=== PATIENT | female | born 1990 | race American Indian/Alaskan Native ===

== ENCOUNTER 2016-09-07 04:53 | Emergency (ER) | payer OTHER ==
[2016-09-07 05:23] VITALS: BP 134/97; PULSE 72; RESP 16; TEMP 98.1; O2SAT 100
--- NOTE | 2016-09-07 05:30 | ED PDOC ---
HPI: Abdomen Time Seen by Provider: 09/07/16 05:20 Chief Complaint (Nursing): Abdominal Pain Chief Complaint (Provider): Abdominal Pain History Per: Patient History/Exam Limitations: no limitations Onset/Duration Of Symptoms: Days (1) Current Symptoms Are (Timing): Still Present Location Of Pain/Discomfort: Suprapubic Quality Of Discomfort: Burning, "Pain" Associated Symptoms: Nausea. denies: Fever, Chills, Vomiting, Back Pain Additional Complaint(s): Nelda Mccann is a 25 y/o female presenting to the ER on 09/07/2016 with complaints of suprapubic abdominal pain onset yesterday. Pain , which radiates to her pelvis, is described as a "burning" sensation and associated with dizziness and nausea. Denies any back pain, hematuria fever, or chills. Patient reports having a UTI in the past. No vaginal complaints at this timor. Past Medical History Reviewed: Historical Data, Nursing Documentation, Vital Signs Vital Signs: Last Vital Signs Temp 98.1 F 09/07/16 05:18 Pulse 72 09/07/16 05:18 Resp 16 09/07/16 05:18 BP 134/97 H 09/07/16 05:18 Pulse Ox 100 09/07/16 05:50 - Medical History PMH: No Chronic Diseases Denies: Chronic Kidney Disease - Surgical History Surgical History: (1) - Family History Family History: States: Unknown Family Hx - Social History Current smoker - smoking cessation education provided: No Alcohol: None Drugs: Denies - Home Medications Home Medications: Ambulatory Orders Medication Instructions Recorded Nitrofurantoin Macrocrystals 100 mg PO BID #14 cap 09/02/15 [Macrobid] Multivit/Folic Acid/I 1 tab PO DAILY #30 tab 09/02/15 [ Plus] Naproxen 375 mg PO Q8 PRN #21 tab 12/21/15 Ibuprofen [Motrin] 600 mg PO Q6 PRN #15 tab 12/23/15 Metaxalone [Skelaxin] 800 mg PO TID PRN #15 tablet 12/23/15 DiphenhydrAMINE [Benadryl] 50 mg PO Q6 PRN #30 cap 04/13/16 Triamcinolone Acetonide 0.1% 1 appl TP BID #1 tube 04/13/16 [Kenalog 0.1% CREAM] Nitrofurantoin Macrocrystals 100 mg PO BID #14 cap 09/07/16 [Macrobid] - Allergies Allergies/Adverse Reactions: Allergies Allergy/AdvReac Type Severity Reaction Status Date / Time No Known Allergies Allergy Verified 04/26/15 12:32 Review of Systems ROS Statement: Except As Marked, All Systems Reviewed And Found Negative Constitutional: Negative for: Fever, Chills Gastrointestinal: Positive for: Nausea, Abdominal Pain. Negative for: Vomiting Genitourinary Female: Positive for: Pelvic Pain. Negative for: Hematuria Musculoskeletal: Negative for: Back Pain Neurological: Positive for: Dizziness Physical Exam - Reviewed Nursing Documentation Reviewed: Yes Vital Signs Reviewed: Yes - Physical Exam Appears: Positive for: Non-toxic, No Acute Distress Head Exam: Positive for: ATRAUMATIC, NORMOCEPHALIC Skin: Positive for: Normal Color, Warm, Dry Eye Exam: Positive for: Normal appearance, EOMI, PERRL Neck: Positive for: Normal, Painless ROM, Supple Cardiovascular/Chest: Positive for: Regular Rate, Rhythm. Negative for: Murmur Respiratory: Positive for: Normal Breath Sounds. Negative for: Wheezing, Respiratory Distress Gastrointestinal/Abdominal: Positive for: Tenderness ((+) mild suprapubic) Extremity: Positive for: Normal ROM. Negative for: Deformity, Swelling Neurologic/Psych: Positive for: Alert, Oriented. Negative for: Motor/Sensory Deficits - ECG O2 Sat by Pulse Oximetry: 100 Medical Decision Making Medical Decision Makin:20 Initial Impression- UTI Initial Plan- * Pyridium 100 mg PO Documented by Talia Mora, acting as a scribe for Jameson Nunez MD. All medical record entries made by the Scribe were at my direction and personally dictated by me. I have reviewed the chart and agree that the record accurately reflects my personal performance of the history, physical exam, medical decision making, and the department course for this patient. I have also personally directed, reviewed, and agree with the discharge instructions and disposition. Disposition - Clinical Impression Clinical Impression: UTI (urinary tract infection) - Disposition Referrals: [facility] [Outside] Disposition Time: 05:40 Condition: GOOD Additional Instructions: Follow up with your PCP in 2-3 days. Prescriptions: Nitrofurantoin Macrocrystals [Macrobid] 100 mg PO BID #14 cap Instructions: Urinary Tract Infection in Women (ED)
== END 2016-09-07 06:01 | disposition home or self-care (01) ==
LOC: H.ER 04:53
DX: N39.0 Urinary tract infection, site not specified (principal)

== ENCOUNTER 2016-09-17 10:53 | Observation (INO) | payer OTHER ==
[2016-09-17 10:58] VITALS: BP 114/71; PULSE 84; TEMP 98.4; O2SAT 99; BMI 27.1
[2016-09-17 11:12] VITALS: RESP 16
[2016-09-17] MEDS ORDERED: Sodium Chloride 0.9% 1,000 ML IV STA (11:24)
--- NOTE | 2016-09-17 11:29 | ED PDOC ---
HPI: Abdomen Time Seen by Provider: 09/17/16 11:10 Chief Complaint (Nursing): GI Problem Chief Complaint (Provider): Abd pain History Per: Patient History/Exam Limitations: no limitations Onset/Duration Of Symptoms: Days (Today) Outside of [place] travel?: No Additional Complaint(s): Pt. with nasuea, vomit multiple episodes when she woke up. Also with some blood tinge in a few vomit episodes. For 2 weeks has lower abd pain. Dysuria, increased freq of urination, urgency of urination No new food/drinks. No travel. No back pain, chest pain, fever. Not preg per pt. No diarrhea. No vaginal bleeding. Past Medical History Reviewed: Nursing Documentation, Vital Signs Vital Signs: Last Vital Signs Temp 98.4 F 09/17/16 11:08 Pulse 84 09/17/16 11:08 Resp 16 09/17/16 11:08 BP 114/71 09/17/16 11:08 Pulse Ox 99 09/17/16 11:41 - Medical History PMH: No Chronic Diseases Denies: Chronic Kidney Disease - Surgical History Surgical History: (1) - Family History Family History: States: Unknown Family Hx - Social History Current smoker - smoking cessation education provided: No Alcohol: None Drugs: Denies - Home Medications Home Medications: Ambulatory Orders Medication Instructions Recorded Nitrofurantoin Macrocrystals 100 mg PO BID #14 cap 09/02/15 [Macrobid] Multivit/Folic Acid/I 1 tab PO DAILY #30 tab 09/02/15 [ Plus] Naproxen 375 mg PO Q8 PRN #21 tab 12/21/15 Ibuprofen [Motrin] 600 mg PO Q6 PRN #15 tab 12/23/15 Metaxalone [Skelaxin] 800 mg PO TID PRN #15 tablet 12/23/15 DiphenhydrAMINE [Benadryl] 50 mg PO Q6 PRN #30 cap 04/13/16 Triamcinolone Acetonide 0.1% 1 appl TP BID #1 tube 04/13/16 [Kenalog 0.1% CREAM] Nitrofurantoin Macrocrystals 100 mg PO BID #14 cap 09/07/16 [Macrobid] - Allergies Allergies/Adverse Reactions: Allergies Allergy/AdvReac Type Severity Reaction Status Date / Time No Known Allergies Allergy Verified 04/26/15 12:32 Review of Systems ROS Statement: Except As Marked, All Systems Reviewed And Found Negative Gastrointestinal: Positive for: Nausea, Vomiting, Abdominal Pain, Hematemesis Physical Exam - Reviewed Nursing Documentation Reviewed: Yes Vital Signs Reviewed: Yes - Physical Exam Appears: Positive for: Non-toxic, No Acute Distress Head Exam: Positive for: ATRAUMATIC, NORMAL INSPECTION, NORMOCEPHALIC Skin: Positive for: Normal Color, Warm, DRY Eye Exam: Positive for: EOMI, Normal appearance, PERRL ENT: Positive for: Normal ENT Inspection Neck: Positive for: Normal, Painless ROM Cardiovascular/Chest: Positive for: Regular Rate, Rhythm Respiratory: Positive for: CNT, Normal Breath Sounds Gastrointestinal/Abdominal: Positive for: Bowel Sounds, Soft, Tenderness (mild across lower) Back: Positive for: Normal Inspection. Negative for: L CVA Tenderness, R CVA Tenderness Extremity: Positive for: Normal ROM. Negative for: Tenderness, Pedal Edema Neurologic/Psych: Positive for: Alert, Oriented - Laboratory Results Result Diagrams: 09/17/16 11:41 09/17/16 11:41 Urine POC: Negative Urine dip results: Positive for: Leukocyte Esterase - ECG O2 Sat by Pulse Oximetry: 99 Pulse Ox Interpretation: Normal - Progress ED Course And Treament: 1310: Stable. AAOx3. Refuses to stay for further evaluation and treatment. Pt. has capacity to make decisions. Aware of possible or decreased functioning from causes of her symptoms. Is pain free and walking around. ED OBSERVATION Discharge: Yes Date of observation admission: 09/17/16 Time of observation admission: 11:40 - Observation admission statement Patient is being placed in observation because:: abd pain - Goals of Observation Goals of observation are:: eval pain - Progress Note Progress Note: 09/17/16 13:13 ama Disposition - Clinical Impression Clinical Impression: Abdominal pain, Hematemesis with nausea Counseled Patient/Family Regarding: Studies Performed - Disposition Disposition: Against Medical Advice Disposition Time: 13:14 Condition: STABLE
[2016-09-17] MEDS ORDERED: Iohexol 240 (50 ml) PO ONE (11:39)
[2016-09-17 11:50] LABS: BASO % 1.2 % (0.0-2.0); HEMATOCRIT 37.8 % (34.0-47.0); LYMPH # 0.9 K/uL (1.0-4.3); MEAN CELL VOLUME 85.5 fl (81.0-99.0); MEAN CORPUSCULAR HEMOGLOBIN 28.1 pg (27.0-31.0); MEAN CORPUSCULAR HGB CONC 32.9 g/dL (33.0-37.0); MEAN PLATELET VOLUME 10.5 fl (7.2-11.7); MONO # 0.4 K/uL (0.0-0.8); MONO % 9.3 % (0.0-10.0); NEUT # 2.5 K/uL (1.8-7.0); NEUT % 65.5 % (50.0-75.0); RED CELL DISTRIBUTION WIDTH 13.5 % (11.5-14.5); WHITE BLOOD COUNT 3.9 K/uL (4.8-10.8)
[2016-09-17 11:58] LABS: ALB/GLOB RATIO 1.1 (1.0-2.1); ALKALINE PHOSPHATASE 56 U/L (38-126); ALT/SGPT 25 U/L (9-52); AST/SGOT 35 U/L (14-36); BILIRUBIN,TOTAL 0.3 mg/dl (0.2-1.3); BLOOD UREA NITROGEN 11 mg/dl (7-17); CARBON DIOXIDE 24 mmol/L (22-30); CHLORIDE 105 mmol/L (98-107); GFR AFRICAN-AMERICAN > 60; GLUCOSE,RANDOM 116 mg/dL (65-105); LIPASE 48 U/L (23-300); POTASSIUM 4.1 MMOL/L (3.6-5.0); SODIUM 142 mmol/l (132-148); TOTAL PROTEIN 8.2 G/DL (6.3-8.2)
== END 2016-09-17 13:15 | disposition left against medical advice (07) ==
LOC: H.ER 10:53 → H.EROBSV 11:39
PROVIDERS: ADMIT Emergency Medicine; ATTEND Emergency Medicine
DX: R10.30 Lower abdominal pain, unspecified (principal); K92.0 Hematemesis; R11.2 Nausea with vomiting, unspecified

== ENCOUNTER 2017-03-07 00:50 | Emergency (ER) | payer OTHER ==
[2017-03-07 00:50] VITALS: BMI 27.1
[2017-03-07 00:57] VITALS: BP 142/84; PULSE 98; RESP 16; TEMP 98.2; O2SAT 98
--- NOTE | 2017-03-07 01:33 | ED PDOC ---
HPI: Abdomen Time Seen by Provider: 03/07/17 00:57 Chief Complaint (Nursing): Abdominal Pain Chief Complaint (Provider): lower abdominal pain History Per: Patient History/Exam Limitations: no limitations Onset/Duration Of Symptoms: Hrs (1) Outside of [place] travel?: No Current Symptoms Are (Timing): Still Present Severity: Moderate Location Of Pain/Discomfort: Suprapubic Quality Of Discomfort: Burning Associated Symptoms: Nausea, Constipation, Urinary Symptoms. denies: Fever, Chills, Vomiting, Diarrhea Exacerbating Factors: None Alleviating Factors: None Last Bowel Movement: Days Ago (7) Additional Complaint(s): 26 year old female with history of constipation presents to ED with suprapubic abdominal pain x [address] [employer]. Patient states pain is constant and burning sensation and dysuria as well. Denies hematuria, fever, chills, back pain. Nausea present at times, though not at this time. Patient states last menstrual period 12/19/16 due to termination of in january. Patient states last BM 1 week ago, she admits to history of constipation with 4-8 days without BM. Patient states no meds at this time for constipation. Abnormal Vaginal Bleeding: No Last Menstral Period: 12/19/16 Past Medical History Reviewed: Historical Data, Nursing Documentation, Vital Signs Vital Signs: Last Vital Signs Temp 98.2 F 03/07/17 00:54 Pulse 98 H 03/07/17 00:54 Resp 16 03/07/17 00:54 BP 142/84 03/07/17 00:54 Pulse Ox 98 03/07/17 02:18 - Medical History PMH: Denies: Chronic Kidney Disease - Surgical History Surgical History: (1) - Family History Family History: States: Unknown Family Hx - Social History Current smoker - smoking cessation education provided: No Alcohol: Occasional Drugs: Denies - Home Medications Home Medications: Ambulatory Orders Medication Instructions Recorded Nitrofurantoin Macrocrystals 100 mg PO BID #14 cap 09/02/15 [Macrobid] Multivit/Folic Acid/I 1 tab PO DAILY #30 tab 09/02/15 [ Plus] Naproxen 375 mg PO Q8 PRN #21 tab 12/21/15 Ibuprofen [Motrin] 600 mg PO Q6 PRN #15 tab 12/23/15 Metaxalone [Skelaxin] 800 mg PO TID PRN #15 tablet 12/23/15 DiphenhydrAMINE [Benadryl] 50 mg PO Q6 PRN #30 cap 04/13/16 Triamcinolone Acetonide 0.1% 1 appl TP BID #1 tube 04/13/16 [Kenalog 0.1% CREAM] Nitrofurantoin Macrocrystals 100 mg PO BID #14 cap 09/07/16 [Macrobid] Nitrofurantoin Macrocrystals 100 mg PO BID #14 cap 03/07/17 [Macrobid] Phenazopyridine HCl [Pyridium] 100 mg PO TID #6 tab 03/07/17 Polyethylene Glycol 3350 [Miralax] 17 g PO QAM PRN #7 pkg 03/07/17 - Allergies Allergies/Adverse Reactions: Allergies Allergy/AdvReac Type Severity Reaction Status Date / Time No Known Allergies Allergy Verified 04/26/15 12:32 Review of Systems ROS Statement: Except As Marked, All Systems Reviewed And Found Negative Constitutional: Negative for: Fever, Chills Gastrointestinal: Positive for: Nausea, Abdominal Pain, Constipation. Negative for: Vomiting Genitourinary Female: Positive for: Dysuria Physical Exam - Reviewed Nursing Documentation Reviewed: Yes Vital Signs Reviewed: Yes - Physical Exam Appears: Positive for: Well, Non-toxic, No Acute Distress Head Exam: Positive for: ATRAUMATIC, NORMAL INSPECTION, NORMOCEPHALIC Skin: Positive for: Normal Color, Warm, DRY Eye Exam: Positive for: Normal appearance, EOMI Neck: Positive for: Normal, Painless ROM Cardiovascular/Chest: Positive for: Regular Rate, Rhythm Respiratory: Positive for: Normal Breath Sounds. Negative for: Crackles, Rales , Wheezing Gastrointestinal/Abdominal: Positive for: Bowel Sounds (normal), Tenderness ( mild tenderness of suprapubic area), Distended (mildly) Back: Positive for: Normal Inspection. Negative for: L CVA Tenderness, R CVA Tenderness Extremity: Positive for: Normal ROM. Negative for: Tenderness, Pedal Edema Neurologic/Psych: Positive for: Alert, Oriented - ECG O2 Sat by Pulse Oximetry: 98 Pulse Ox Interpretation: Normal - Progress ED Course And Treament: Time: 0125 Impression: 26 year old female presents with lower abdominal pain x [address] [employer], constant, burning, suprapubic pain. 1 week no BM. Plan: -URINE DIP STICK -URINE -URINALYSIS -URINE CULTURE -ABDOMEN FLAT PLATE -REEVAL Time: 0200 Urine indicative of UTI. Xray reviewed shows constipation. Patient had BM during ED stay. Patient to be discharge home with PO abx and treatment for constipation. Patient to follow up with PMD in 2-3 days. Disposition - Clinical Impression Clinical Impression: UTI (urinary tract infection), Constipation Counseled Patient/Family Regarding: Studies Performed, Diagnosis, Need For Followup - Disposition Referrals: [facility] [Outside] Disposition: Routine/Home Disposition Time: 02:21 Condition: STABLE Additional Instructions: Follow up with your PCP in 2-3 days. Take medications as prescribed. Return to ED for new/worsening symptoms. Prescriptions: Nitrofurantoin Macrocrystals [Macrobid] 100 mg PO BID #14 cap Phenazopyridine HCl [Pyridium] 100 mg PO TID #6 tab Polyethylene Glycol 3350 [Miralax] 17 g PO QAM PRN #7 pkg PRN Reason: Constipation Instructions: Constipation (ED), Urinary Tract Infection in Women (ED) Forms: [facility] (Kyrgyz)
[2017-03-07 02:55] LABS: URINE BILIRUBIN NEGATIVE (NEGATIVE); URINE BLOOD SMALL (NEGATIVE); URINE COLOR YELLOW (YELLOW); URINE GLUCOSE (UA) NEG (Normal); URINE KETONE NEGATIVE (NEGATIVE); URINE LEUKOCYTE ESTERASE LARGE Leu/uL (Negative); URINE PROTEIN 100 mg/dL (NEGATIVE); URINE UROBILINOGEN 0.2-1.0 mg/dL (0.2-1.0)
--- NOTE | 2017-03-07 08:38 | RAD ---
HISTORY: abd pain COMPARISON: No prior. FINDINGS: BOWEL: There is a mildly prominent amount retained fecal material scattered throughout the colon which may indicate constipation. Clinically correlate. No gross free intraperitoneal gas pattern or definite obstructive bowel gas pattern BONES: Normal. OTHER FINDINGS: Tiny phleboliths or limited other calcifications seen infrequently at the bilateral inferior pelvis soft tissues. IMPRESSION: Nonobstructive bowel gas pattern. No free intraperitoneal gas grossly evident however constipation pattern may be present. Clinically correlate.
== END 2017-03-07 02:10 | disposition home or self-care (01) ==
LOC: H.ER 00:50
DX: N39.0 Urinary tract infection, site not specified (principal); K59.00 Constipation, unspecified

== ENCOUNTER 2017-08-15 07:57 | Emergency (ER) | payer OTHER ==
[2017-08-15 08:02] VITALS: BMI 27.4
--- NOTE | 2017-08-15 09:14 | ED PDOC ---
History of Present Illness History of Present Illness: 26 y/o female presents to the ED complaining of fever, body aches, whole body pain x 2days. Reports that she vomited at home. Also reports taking Theraflu and Nyquil without relief. Denies diarrhea, sore throat or any further medical complaints. <MarleniLisa Y - Last Filed: 08/15/17 11:08> HPI: Influenza Chief Complaint (Provider): Flu-like Symptoms History Per: Patient Exam Limitations: no limitations <Lisa eYpez Y - Last Filed: 08/15/17 11:08> <Martin Gómez E - Last Filed: 08/16/17 10:20> Time Seen by Provider: 08/15/17 08:33 Chief Complaint: Flu-like Symptoms Past Medical History Reviewed: Historical Data, Nursing Documentation, Vital Signs Vital Signs: Last Vital Signs Temp 102.7 F H 08/15/17 08:02 Pulse 132 H 08/15/17 08:02 Resp 17 08/15/17 08:02 BP 116/71 08/15/17 08:02 Pulse Ox 97 08/15/17 08:02 - Medical History PMH: No Chronic Diseases Denies: Chronic Kidney Disease - Surgical History Surgical History: (1) - Family History Family History: States: Unknown Family Hx - Social History Current smoker - smoking cessation education provided: No Alcohol: Occasional Drugs: Denies <MarleniLisa Y - Last Filed: 08/15/17 11:08> Vital Signs: Last Vital Signs Temp 99.8 F H 08/15/17 11:38 Pulse 76 08/15/17 11:38 Resp 18 08/15/17 11:38 BP 122/67 08/15/17 11:38 Pulse Ox 100 08/15/17 11:38 <Martin Gómez E - Last Filed: 08/16/17 10:20> - Home Medications Home Medications: Ambulatory Orders Medication Instructions Recorded Nitrofurantoin Macrocrystals 100 mg PO BID #14 cap 09/02/15 [Macrobid] Multivit/Folic Acid/I 1 tab PO DAILY #30 tab 09/02/15 [ Plus] Naproxen 375 mg PO Q8 PRN #21 tab 12/21/15 Ibuprofen [Motrin] 600 mg PO Q6 PRN #15 tab 12/23/15 Metaxalone [Skelaxin] 800 mg PO TID PRN #15 tablet 12/23/15 DiphenhydrAMINE [Benadryl] 50 mg PO Q6 PRN #30 cap 04/13/16 Triamcinolone Acetonide 0.1% 1 appl TP BID #1 tube 04/13/16 [Kenalog 0.1% CREAM] Nitrofurantoin Macrocrystals 100 mg PO BID #14 cap 09/07/16 [Macrobid] Nitrofurantoin Macrocrystals 100 mg PO BID #14 cap 03/07/17 [Macrobid] Phenazopyridine HCl [Pyridium] 100 mg PO TID #6 tab 03/07/17 Polyethylene Glycol 3350 [Miralax] 17 g PO QAM PRN #7 pkg 03/07/17 Oseltamivir [Tamiflu] 75 mg PO BID #10 cap 08/15/17 - Allergies Allergies/Adverse Reactions: Allergies Allergy/AdvReac Type Severity Reaction Status Date / Time No Known Allergies Allergy Verified 04/26/15 12:32 Review of Systems ROS Statement: Except As Marked, All Systems Reviewed And Found Negative (As pe rHPI, otherwise negative) Constitutional: Positive for: Fever, Other Gastrointestinal: Positive for: Vomiting <Lisa Yepez Y - Last Filed: 08/15/17 11:08> Physical Exam - Reviewed Nursing Documentation Reviewed: Yes Vital Signs Reviewed: Yes - Physical Exam Appears: Positive for: Non-toxic, No Acute Distress Head Exam: Positive for: ATRAUMATIC, NORMAL INSPECTION, NORMOCEPHALIC Skin: Positive for: Normal Color, Warm, Dry Eye Exam: Positive for: EOMI, Normal appearance, PERRL ENT: Positive for: Normal ENT Inspection Neck: Positive for: Normal, Painless ROM, Supple Cardiovascular/Chest: Positive for: Regular Rate, Rhythm. Negative for: Murmur Respiratory: Positive for: Normal Breath Sounds. Negative for: Accessory Muscle Use, Respiratory Distress Gastrointestinal/Abdominal: Positive for: Normal Exam, Bowel Sounds, Soft. Negative for: Tenderness Back: Positive for: Normal Inspection Extremity: Positive for: Normal ROM. Negative for: Deformity Neurologic/Psych: Positive for: Alert, Oriented (x3) <Lisa Yepez Y - Last Filed: 03/26/18 11:08> Medical Decision Making Medical Decision Making: Time: 08:56 Initial Impression: Flu-like symtoms Plan: Acetaminophen 650mg PO Reevalaution Time: 09:36 Throat culture Time: 11:08 -- Labs reviewed and patient was found flu positive --upon reevaluation, fever came down --Patient will be discharged home Scribe Attestation: Documented by Deric Balderas acting as a scribe for Lisa Yepez MD. Scribe Attestation: All medical record entries made by the Scribe were at my direction and personally dictated by me. I have reviewed the chart and agree that the record accurately reflects my personal performance of the history, physical exam, medical decision making, and the department course for this patient. I have also personally directed, reviewed, and agree with the discharge instructions and disposition. <Lisa Yepez Y - Last Filed: 08/15/17 11:08> - ECG O2 Sat by Pulse Oximetry: 97 <Lisa Yepez Y - Last Filed: 08/15/17 11:08> Disposition - Disposition Disposition: Routine/Home Disposition Time: 11:08 <Lisa Yepez Y - Last Filed: 08/15/17 11:08> <Martin Gómez E - Last Filed: 08/16/17 10:20> - Clinical Impression Clinical Impression: Influenza - Disposition Condition: IMPROVED Additional Instructions: FOLLOW UP WITH YOUR PRIMARY DOCTOR IN 1-2 DAYS RETURN TO THE ED WITH ANY WORSENING OR CONCERNING SYMPTOMS Prescriptions: Oseltamivir [Tamiflu] 75 mg PO BID #10 cap Instructions: Flu, Adult (DC) Forms: [facility] ED School/Work Excuse Addendum Addendum: 08/16/17 10:19 Throat culture: +group a strep Spoke with patient and informed of results. States she is currently taking Tamiflu and has had some improvement but symptoms are still present. Called Amoxicillin Rx into [facility] [phone]. Advised to also continue Tamiflu and to return to ED if symptoms worsen or do not improve. <Martin Gómez E - Last Filed: 08/16/17 10:20>
[2017-08-15 11:40] VITALS: BP 122/67; PULSE 76; RESP 18; TEMP 99.8; O2SAT 100
== END 2017-08-15 11:42 | disposition home or self-care (01) ==
LOC: H.ER 07:57
DX: J11.1 Influenza due to unidentified influenza virus with other respiratory manifestations (principal)

== ENCOUNTER 2017-09-14 13:54 | Emergency (ER) | payer OTHER ==
[2017-09-14 13:54] VITALS: BMI 27.4
[2017-09-14 14:14] VITALS: O2SAT 99
--- NOTE | 2017-09-14 16:06 | ED PDOC ---
HPI: Female Pain Time Seen by Provider: 09/14/17 14:05 Chief Complaint (Nursing): Female Genitourinary Chief Complaint (Provider): Vaginal Spotting History Per: Patient History/Exam Limitations: no limitations Onset/Duration Of Symptoms: Days (Yesterday) Current Symptoms Are (Timing): Still Present Quality Of Discomfort: Cramping (Right pelvic, resolved) Additional Complaint(s): Nelda Mccann is a 26 year old female, with a surgical history of a c section, complaining of vaginal spotting onset since yesterday. Patient describes spotting as light pink in color and reports right pelvic cramping but currently resolved. 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 Patient had a positive home test. She is A0 and denies other medical complaints. She reports no drug allergies. PCP: not provided Past Medical History Reviewed: Historical Data, Nursing Documentation, Vital Signs Vital Signs: Last Vital Signs Temp 98.3 F 09/14/17 14:07 Pulse 94 H 09/14/17 14:07 Resp 20 09/14/17 14:07 BP 125/79 09/14/17 14:07 Pulse Ox 99 09/14/17 14:07 - Medical History PMH: No Chronic Diseases Denies: Chronic Kidney Disease - Surgical History Surgical History: (1) - Family History Family History: States: Unknown Family Hx - Social History Current smoker - smoking cessation education provided: No Drugs: Denies - Home Medications Home Medications: Ambulatory Orders Medication Instructions Recorded Nitrofurantoin Macrocrystals 100 mg PO BID #14 cap 09/02/15 [Macrobid] Multivit/Folic Acid/I 1 tab PO DAILY #30 tab 09/02/15 [ Plus] Naproxen 375 mg PO Q8 PRN #21 tab 12/21/15 Ibuprofen [Motrin] 600 mg PO Q6 PRN #15 tab 12/23/15 Metaxalone [Skelaxin] 800 mg PO TID PRN #15 tablet 12/23/15 DiphenhydrAMINE [Benadryl] 50 mg PO Q6 PRN #30 cap 04/13/16 Triamcinolone Acetonide 0.1% 1 appl TP BID #1 tube 04/13/16 [Kenalog 0.1% CREAM] Nitrofurantoin Macrocrystals 100 mg PO BID #14 cap 09/07/16 [Macrobid] Nitrofurantoin Macrocrystals 100 mg PO BID #14 cap 03/07/17 [Macrobid] Phenazopyridine HCl [Pyridium] 100 mg PO TID #6 tab 03/07/17 Polyethylene Glycol 3350 [Miralax] 17 g PO QAM PRN #7 pkg 03/07/17 Oseltamivir [Tamiflu] 75 mg PO BID #10 cap 08/15/17 Nitrofurantoin Macrocrystals 100 mg PO BID #14 cap 09/14/17 [Macrobid] - Allergies Allergies/Adverse Reactions: Allergies Allergy/AdvReac Type Severity Reaction Status Date / Time No Known Allergies Allergy Verified 04/26/15 12:32 Review of Systems ROS Statement: Except As Marked, All Systems Reviewed And Found Negative Genitourinary Female: Positive for: Vaginal Bleeding (Vaginal spotting). Negative for: Pelvic Pain (Resolved) Physical Exam - Reviewed Nursing Documentation Reviewed: Yes Vital Signs Reviewed: Yes - Physical Exam Appears: Positive for: Non-toxic, No Acute Distress Skin: Positive for: Normal Color, Warm, Dry Eye Exam: Positive for: Normal appearance Neck: Positive for: Painless ROM Cardiovascular/Chest: Positive for: Regular Rate, Rhythm. Negative for: Murmur Respiratory: Positive for: Normal Breath Sounds. Negative for: Respiratory Distress Gastrointestinal/Abdominal: Positive for: Tenderness (Slight suprapubic tenderness) Back: Positive for: Normal Inspection. Negative for: L CVA Tenderness, R CVA Tenderness, Vertebral Tenderness Extremity: Positive for: Normal ROM. Negative for: Deformity, Swelling Neurologic/Psych: Positive for: Alert, Oriented - Laboratory Results Result Diagrams: 09/14/17 16:00 09/14/17 16:00 - ECG O2 Sat by Pulse Oximetry: 99 (RA) Pulse Ox Interpretation: Normal Medical Decision Making Medical Decision Making: Initial Impression: Vaginal Spotting rule out threatened Initial Plan: * ABO/RH Type Stat * Beta HCG Quantitative Stat * CMP * CBC * Urine Culture * Urinalysis * OB US * Re Evaluation Time: 1747 Patient is stable for discharge. Time: 1829 Pending HCG and ultrasound Ultrasound FINDINGS: There is an intrauterine gestational sac with a pole and yolk sac.. Yolk sac measures 3.5 mm. heart rate is 142 bpm A pole is seen measuring 8.2 mm 6 weeks 5 days Ultrasound GA 7 weeks RAMÍREZ 05/03/2018 Clinical GA 7 weeks 1 day RAMÍREZ 05/02/2018. The uterus measures 8.2 cm x 7.1 cm x 6.4 cm. cervix measures 4.2 cm the os is closed. The ovaries do not show focal abnormality. Normal blood flow is seen in both ovaries. The RIGHT ovary 2.6 cm x 1.5 cm x 2.5 cm The LEFT ovary 2.2 cm x 1.3 cm x 2.1 cm. IMPRESSION: 1. Single living intrauterine 2. Gestational age 7 weeks one day RAMÍREZ 05/02/2018 3. [place] examination of the ovaries 4. Negative uterus and cervix pt has uti. pt awaiting results of US. signout to Dr Winston Matias Attestation: Documented by Felix Lewis acting as a scribe for Lisa Yepez MD. MD Amat[place]juen Attestation: All medical record entries made by the Scribe were at my direction and personally dictated by me. I have reviewed the chart and agree that the record accurately reflects my personal performance of the history, physical exam, medical decision making, and the department course for this patient. I have also personally directed, reviewed, and agree with the discharge instructions and disposition. Disposition - Clinical Impression Clinical Impression: Threatened , UTI (urinary tract infection) - Patient ED Disposition Is Patient to be Admitted: Transfer of Care Counseled Patient/Family Regarding: Studies Performed, Diagnosis, Need For Followup - Disposition [facility]errals: [facility] [Outside] Disposition: Transfer of Care Disposition Time: 19:00 Condition: STABLE Prescriptions: Nitrofurantoin Macrocrystals [Macrobid] 100 mg PO BID #14 cap Instructions: Urinary Tract Infections in Adults, Threatened Miscarriage (DC), Bleeding With (DC) Forms: [employer] (Albanian), [facility] ED School/Work Excuse
[2017-09-14 16:27] LABS: BASO % 0.6 % (0.0-2.0); EOS # 0.1 K/uL (0.0-0.7); EOS % 2.1 % (0.0-4.0); LYMPH # 1.6 K/uL (1.0-4.3); MEAN CELL VOLUME 85.4 fl (81.0-99.0); MEAN CORPUSCULAR HEMOGLOBIN 28.2 pg (27.0-31.0); MEAN PLATELET VOLUME 10.4 fl (7.2-11.7); MONO # 0.6 K/uL (0.0-0.8); MONO % 9.9 % (0.0-10.0); NEUT # 3.3 K/uL (1.8-7.0); NEUT % 59.4 % (50.0-75.0); NRBC % 0.1 % (0.0-0.0); RBC 4.25 Mil/uL (3.80-5.20); RED CELL DISTRIBUTION WIDTH 12.8 % (11.5-14.5); WHITE BLOOD COUNT 5.6 K/uL (4.8-10.8)
[2017-09-14 16:38] LABS: ALB/GLOB RATIO 1.2 (1.0-2.1); ALBUMIN 4.2 g/dL (3.5-5.0); ALT/SGPT 28 U/L (9-52); AST/SGOT 21 U/L (14-36); BLOOD UREA NITROGEN 10 mg/dl (7-17); CALCIUM 9.3 mg/dL (8.4-10.2); GFR AFRICAN-AMERICAN > 60; GFR NON-AFRICAN AMERICAN > 60
[2017-09-14 17:06] LABS: SQUAMOUS EPITHIAL 9 /hpf (0-5); URINE BACTERIA RARE (<OCC); URINE BILIRUBIN NEGATIVE (NEGATIVE); URINE BLOOD NEGATIVE (NEGATIVE); URINE CLARITY CLOUDY (Clear); URINE COLOR YELLOW (YELLOW); URINE GLUCOSE (UA) NEG (Normal); URINE LEUKOCYTE ESTERASE SMALL Leu/uL (Negative); URINE PROTEIN NEGATIVE (NEGATIVE); URINE UROBILINOGEN 0.2-1.0 mg/dL (0.2-1.0)
--- NOTE | 2017-09-14 20:47 | ED PDOC ---
- Laboratory Results Result Diagrams: 09/14/17 16:00 09/14/17 16:00 - ECG O2 Sat by Pulse Oximetry: 99 (RA) Pulse Ox Interpretation: Normal Medical Decision Making Medical Decision MakinPM: Patient endorsed to me by Dr. Yepez pending U/S and Beta-HCG 830PM: EXAM: US Uterus, Limited CLINICAL HISTORY: 26 years old, female; Signs and symptoms; Lmp or gestational age (in weeks): 07/26; Other: Spotting; ; Additional info: vag spotting TECHNIQUE: Real-time ultrasound of the maternal uterus (limited) with image documentation. COMPARISON: US - OB TRANSVAGINAL 2015-04-26 14:11 FINDINGS: There is an intrauterine gestational sac with a pole and yolk sac.. Yolk sac measures 3.5 mm. heart rate is 142 bpm A pole is seen measuring 8.2 mm 6 weeks 5 days Ultrasound GA 7 weeks RAMÍREZ 05/03/2018 Clinical GA 7 weeks 1 day RAMÍREZ 05/02/2018. The uterus measures 8.2 cm x 7.1 cm x 6.4 cm. cervix measures 4.2 cm the os is closed. The ovaries do not show focal abnormality. Normal blood flow is seen in both ovaries. The RIGHT ovary 2.6 cm x 1.5 cm x 2.5 cm The LEFT ovary 2.2 cm x 1.3 cm x 2.1 cm. IMPRESSION: 1. Single living intrauterine 2. Gestational age 7 weeks one day RAMÍREZ 05/02/2018 3. [place] examination of the ovaries 4. Negative uterus and cervix Thank you for allowing us to participate in the care of your patient. Dictated and Authenticated by: Layo Starkey MD 09/14/2017 7:17 PM Eastern Time ([place] & [place]) Patient informed of results. Comfortable, no pain, very well appearing at this time. Advised strict pelvic rest until further eval by IMAGE EDITOR. PAtient states he lifts heavy boxes at work, advised patient that she cannot do that until eval by OB and cleared for regular work. Will treat UTI. Return precautions given. Disposition - Clinical Impression Clinical Impression: Threatened , UTI (urinary tract infection) - POA Present On Arrival: None - Disposition Referrals: [facility] [Outside] Disposition: Routine/Home Disposition Time: 20:47 Condition: STABLE Prescriptions: Nitrofurantoin Macrocrystals [Macrobid] 100 mg PO BID #14 cap Instructions: Urinary Tract Infections in Adults, Threatened Miscarriage (DC), Bleeding With (DC) Forms: [employer] (Nepalese), [facility] ED School/Work Excuse
[2017-09-14 21:00] VITALS: BP 121/74; PULSE 83; RESP 18; TEMP 98.1
--- NOTE | 2017-09-15 11:54 | US ---
PROCEDURE: OB Pelvic Ultrasound HISTORY: vag spotting LMP: 07/26/2017 suggesting estimated gestational age of 7 weeks 1 day. COMPARISON: None available. FINDINGS: UTERUS: A gestational sac is identified with pole and yolk sac internally as well as amniotic membrane within the endometrial cavity. Mean sac diameter measures 2.56 cm. Mean crown-rump length measurement is 0.81 cm correspond average completed 6 weeks 5 days which is concordant with LMP derived dates of 7 weeks 1 day. Yolk sac measures 0.35 cm. cardiac activity is recorded at 142 beats per minute. No definite acute subchorionic hemorrhage appreciated although inhomogeneous signal changes seen at the anterior inferior margins of the decidual reaction which appear nonspecific. Follow-up pelvic ultrasonography is recommended. No myometrial lesion appreciable throughout. Date of delivery (Ultrasound estimated) : 05/02/2018. Uterus measures 8.3 x 7.2 x 6.4 cm. Normal in size and appearance. CERVIX: Measures 4.3 cm. Long and closed. No cervical abnormality seen. RIGHT OVARY: Measures 2.6 x 1.6 x 2.6 cm. No mass lesion. Normal flow. LEFT OVARY: Measures 2.3 x 1.4 x 2.1 cm. No solid mass. Normal flow. FREE FLUID: None. OTHER FINDINGS: None. IMPRESSION: A single viable intrauterine gestation identified in the 1st trimester with average ultrasonic age of 6 weeks 5 days which is concordant with LMP derived dates of 7 weeks 1 day. Inhomogeneous signal changes seen related to the periphery of the anterior inferior decidual reaction though this may not represent an acute subchorionic hemorrhage. Follow-up pelvic ultrasound is recommended. The remainder the examination appears unremarkable.
== END 2017-09-14 21:01 | disposition home or self-care (01) ==
LOC: H.ER 13:54
DX: O23.41 Unspecified infection of urinary tract in pregnancy, first trimester (principal); O20.0 Threatened abortion; Z3A.01 Less than 8 weeks gestation of pregnancy; Z36.9 Encounter for antenatal screening, unspecified

== ENCOUNTER 2018-04-17 11:46 | Emergency (ER) | payer OTHER ==
--- NOTE | 2018-04-17 14:12 | OBDCSUM ---
Datetime: 04/17/2018 13:10 Discharged to, Provider: Home Follow up at, Provider: Dr Frank Disch Instr Activity: Normal activity Disch Instr Diet: Regular Discharge Diagnosis, Provider: Jason Labor - Undelivered Discharge Time: 04/17/2018 13:10 Follow up in weeks, Provider: 04/19/18 Disch Referrals: None
[2018-04-17 17:27] VITALS: BP 105/63; PULSE 100; TEMP 98.2; O2SAT 100
== END 2018-04-17 13:20 | disposition home or self-care (01) ==
LOC: H.EROB2 11:46 → H.L&D 12:24 → H.EROB2 13:20
DX: O26.93 Pregnancy related conditions, unspecified, third trimester (principal); R10.2 Pelvic and perineal pain; Z3A.37 37 weeks gestation of pregnancy; O47.1 False labor at or after 37 completed weeks of gestation

== ENCOUNTER 2018-04-22 23:20 | Inpatient (IN) | payer OTHER ==
[2018-04-22 23:34] VITALS: BMI 31.1
[2018-04-23] MEDS ORDERED: Lactated Ringer's 1,000 ML IV SCH (00:15)
[2018-04-23 01:59] LABS: BASO % 0.2 % (0.0-2.0); EOS % 0.6 % (0.0-4.0); HEMOGLOBIN 11.1 g/dL (12.0-16.0); LYMPH # 1.4 K/uL (1.0-4.3); LYMPH % 19.4 % (20.0-40.0); MEAN CELL VOLUME 82.4 fl (81.0-99.0); MEAN CORPUSCULAR HEMOGLOBIN 26.1 pg (27.0-31.0); MEAN CORPUSCULAR HGB CONC 31.7 g/dL (33.0-37.0); MEAN PLATELET VOLUME 10.9 fl (7.2-11.7); MONO # 0.7 K/uL (0.0-0.8); MONO % 9.2 % (0.0-10.0); NEUT # 5.1 K/uL (1.8-7.0); NEUT % 70.6 % (50.0-75.0); NRBC % 0.2 % (0.0-0.0); RBC 4.24 Mil/uL (3.80-5.20); RED CELL DISTRIBUTION WIDTH 16.5 % (11.5-14.5); WHITE BLOOD COUNT 7.2 K/uL (4.8-10.8)
[2018-04-23] MEDS ORDERED: ceFAZolin IV 2 gm in Dextrose 2 GM/50 ML BAG IVPB ONE (01:59)
[2018-04-23] MEDS ORDERED: Oxytocin 30 UNITS in Sodium Chloride 0.9% 500 ML IV ONE (01:59)
[2018-04-23] MEDS ORDERED: OXYTOCIN/0.9 % NS 20 UNIT/1,000 ML BAG IV SCH (02:00)
[2018-04-23 02:03] LABS: SQUAMOUS EPITHIAL 7 /hpf (0-5); URINE BACTERIA RARE (<OCC); URINE BILIRUBIN NEGATIVE (NEGATIVE); URINE BLOOD NEGATIVE (NEGATIVE); URINE CLARITY CLOUDY (Clear); URINE COLOR YELLOW (YELLOW); URINE GLUCOSE (UA) NEG (Normal); URINE LEUKOCYTE ESTERASE MOD Leu/uL (Negative); URINE PROTEIN NEGATIVE (NEGATIVE); URINE UROBILINOGEN 0.2-1.0 mg/dL (0.2-1.0)
[2018-04-23] MEDS ORDERED: Phenylephrine 10 mg/ml Inj ONE (02:21)
[2018-04-23] MEDS ORDERED: ePHEDrine 50 mg/ml Inj ONE (02:22)
[2018-04-23] MEDS ORDERED: Morphine 1 mg/ml preservative-free Inj(Duramorph) ONE (02:22)
[2018-04-23] MEDS ORDERED: Succinylcholine 200 mg/10 ml Inj IV ONE (02:40)
[2018-04-23] MEDS ORDERED: Cellulose Hemostat 2X3 Sheet ONE (03:28)
[2018-04-23] MEDS ORDERED: Lactated Ringer's 1,000 ML IV ONE (03:57)
[2018-04-23] MEDS ORDERED: Oxycodone/Acetaminophen 5/325 mg Tab PO PRN ×4 (03:59→08:51)
[2018-04-23] MEDS ORDERED: DiphenhydrAMINE 50 mg/ml Inj IVP PRN ×2 (04:22→08:51)
--- NOTE | 2018-04-23 10:21 | OBADHP ---
Datetime: 04/23/2018 10:16 Admit Comment, IP Provider: 27-year-old G [id number] at 30 weeks gestational age in early labor. Patient presents to OB ED complaining of contractions. Patient found to have contractions every 1-2 minutes. After IV hydration, contractions continued in frequency and intensity. Patient denies any leakage of fluids or vaginal bleeding. Patient reports good movement. Discussed options with patient. Due to early labor, plan for repeat today. Past medical history denies Past surgical history Medications vitamins No known drug allergies Obstetrical history 1 Social history denies tobacco, drugs, alcohol Assessment: at 38 weeks gestational age with prior in early labor. heart tracing categor y 1. Plan: Admit for repeat . Discussed with patient the risks, benefits, alternatives of surgery and patient consented for repe at . Anesthesia consult Pelvic Type - PN: Adequate Extremities - PN: Normal Abdomen - PN: Normal Back - PN: Normal Breast - PN: Normal Lungs - PN: Normal Heart - PN: Normal Thyroid - PN: Normal Neurologic - PN: Normal HEENT - PN: Normal General - PN: Normal FHR - Baseline A Provider: 150s Contraction Comments Provider: q1-2min Vital Signs Provider: Reviewed; Within Normal Limits IP Chief Complaint: Uterine contractions NICHD Variability Prov Fetus A: Moderate 6-25bpm NICHD Accel Fetus A IP Provider: [id number] FHR Category Provider Fetus A: Category I NICHD Decel Fetus A IP Provider: None Dilatation, Provider: 0 Effacement, Provider: 75 Station, Provider: -2 Genitourinary Exam: Normal DTRs - PN: Normal IP Adm Impression: Term, intrauterine ; Active labor IP Admit Plan: Admit to unit; Initiate Section protocol Datetime: 04/17/2018 12:16 Gestation - Est Wks by US: 37.6 Pool Provider: Negative IP Hx Assessment: The History has been Reviewed and is Current EGA AdmitDate IP: 37.6
--- NOTE | 2018-04-23 10:28 | OBDS ---
DELIVERY PERSONNEL Delivery Doctor: Julio Viera MD Assistant Mechanic: Vaishnavi Peres RN, Serena WILLARD Anesthesiologist: Carin Salas MD Resident: Shantelle Montoya MATERNAL INFORMATION Delivery Anesthesia: Spinal Medications in Delivery: Pitocin Estimated Blood Loss (ml): 800 Placenta Cultured: No Maternal Complications: None Provider Comments: Repeat low flap transverse section via Pfannenstiel incision. Patient delivered viable with Apgars of 9 and 9 at one and 5 minutes respectively. Normal u terus, normal tubes and ovaries bilaterally. Moderate amount of intra-abdominal and pelvic adhesions. Line estimated blood loss 800 mL 1000 mL lactated Ringer's Urine output 300 mL of clear urine No complications Patient tolerated procedure well. LABOR SUMMARY EDC: 05/02/2018 00:00 No. Babies in Womb: 1 Attempted: No Labor Anesthesia: Spinal LABOR INFORMATION Reason for Induction: Not Applicable Oxytocin: N/A Group B Beta Strep: Done, Result Unknown Antibiotics # of Doses: 1 Antibiotics Time of Last Dose: 0230 Steroids Given: None Reason Steroids Not Administered: Not Applicable MEMBRANES Membranes Rupture Method: Artificial Rupture of Membranes: 04/23/2018 03:14 Length of Rupture (hrs): 0.02 Amniotic Fluid Color: Light Meconium Amniotic Fluid Amount: Moderate STAGES OF LABOR Stage 3 hrs: 0 Stage 3 min: 1 CSECTION DELIVERY Primary Indication: Repeat Elective CSection Urgency: Non Elective CSection Incidence: Repeat Labor: Labor CSection Incision: Lower Uterine Transverse BABY A INFORMATION Infant Delivery Date/Time: 04/23/2018 03:15 Method of Delivery: Born in Route : No : N/A Forceps: N/A Vacuum Extraction: N/A Shoulder Dystocia : No SHOULDER DYSTOCIA BABY A Delivery Date/Time: 04/23/2018 03:15 PRESENTATION/POSITION BABY A Presentation: Cephalic Cephalic Presentation: Vertex Breech Presentation: N/A PLACENTA INFORMATION BABY A Placenta Delivery Time : 04/23/2018 03:16 Placenta Method of Delivery: Manual Removal Placenta Status: Delivered SCORES BABY A Heart Rate 1 min: >100 bpm Resp Effort 1 min: Good Cry Reflex Irritability 1 min: Cough or Sneeze or Pulls Away Muscle Tone 1 min: Active Motion Color 1 min: Body Amery, Extremities Blue Resuscitation Effort 1 min: Tactile Stimulation SCORE 1 MIN: 9 Heart Rate 5 min: >100 bpm Resp Effort 5 min: Good Cry Reflex Irritability 5 min: Cough or Sneeze or Pulls Away Muscle Tone 5 min: Active Motion Color 5 min: Body Amery, Extremities Blue Resuscitation Effort 5 min: N/A SCORE 5 MIN: 9 INFORMATION BABY A Gestational Age at Delivery: 38.5 Gestational Status: Term Infant Outcome : Liveborn Infant Condition : Stable Sex: Male IDENTIFICATION/MEDS BABY A ID Band Location: Left Leg; Left Arm WEIGHT/LENGTH BABY A Infant Birthweight (gms): 3990 Weight (lb): 8 Infant Weight (oz): 13 CORD INFORMATION BABY A No. Cord Vessels: 3 Nuchal Cord : N/A Cord Blood Taken: Yes Suction: Mouth; Nose ASSESSMENT BABY A Infant Complications: Meconium Physical Findings at Delivery: Within Normal Limits Respirations: Appears Normal Fire Investigation Lieutenant/ALS Called : No Infant Care By: Briana Woo Transferred To: Remains with Mother
[2018-04-23] MEDS: Lactated Ringer's 1,000 ML IV SCH ×2 (11:05→19:06)
[2018-04-23 11:22] LABS: BASO % 0.1 % (0.0-2.0); EOS % 0.2 % (0.0-4.0); HEMOGLOBIN 10.4 g/dL (12.0-16.0); LYMPH # 1.1 K/uL (1.0-4.3); LYMPH % 13.1 % (20.0-40.0); MEAN CELL VOLUME 80.6 fl (81.0-99.0); MEAN CORPUSCULAR HEMOGLOBIN 25.8 pg (27.0-31.0); MONO # 0.8 K/uL (0.0-0.8); MONO % 9.2 % (0.0-10.0); NEUT # 6.4 K/uL (1.8-7.0); NEUT % 77.4 % (50.0-75.0); NRBC % 0.1 % (0.0-0.0); RBC 4.04 Mil/uL (3.80-5.20); RED CELL DISTRIBUTION WIDTH 16.3 % (11.5-14.5); WHITE BLOOD COUNT 8.2 K/uL (4.8-10.8)
--- NOTE | 2018-04-23 22:21 | OP ---
PROCEDURE DATE: 04/23/2018 PREOPERATIVE DIAGNOSES: Previous section, early labor, 38 weeks' gestational age. POSTOPERATIVE DIAGNOSES: Previous section, early labor, 38 weeks' gestational age. OPERATION PERFORMED: Repeat low-flap transverse section via Pfannenstiel incision, lysis of adhesions. OPERATIVE FINDINGS: Viable infant with 's of 9 and 9 in one and five minutes respectively, normal uterus, normal tubes and ovaries bilaterally, moderate amount of intraabdominal and pelvic adhesions. SURGEON: Stephan Viera MD ASSOCIATE APPLICATION DEVELOPER: Reba Pepper DO ANESTHESIOLOGIST: Dr. Salas. ANESTHESIA: Spinal. COMPLICATIONS: None. DESCRIPTION OF PROCEDURE: The patient was taken to the operating room, where spinal anesthesia was found to be adequate. The patient was prepped and draped in normal sterile fashion in the dorsal supine position with leftward tilt. A Pfannenstiel skin incision was made with a scalpel. This was carried down through to the underlying layer of fascia with the scalpel. A midline defect was made in the fascial layer with the scalpel. The fascial incision was then extended bilaterally sharply with curved Sy scissors. The fascial layer was from the underlying rectus muscles both bluntly and sharply with curved Sy scissors. The rectus muscles were at the midline. The peritoneum was then identified, tented up with Yasemin clamps x2 and entered sharply with Metzenbaum scissors. This peritoneal incision was then extended superiorly and inferiorly with good visualization of the urinary bladder. Bladder blade was inserted into the abdomen. The vesicouterine peritoneum was then identified, tented up with Yasemin clamps x2 and entered sharply with Metzenbaum scissors. This peritoneal incision was then extended bilaterally with Metzenbaum scissors. The bladder flap was created digitally. The Candy retractor was placed over the urinary bladder. The uterus was incised with the scalpel. The uterine incision was extended bilaterally bluntly. The 's head was delivered atraumatically. Nose and mouth were suctioned with bulb suction. The remainder of the was delivered without complication. The cord was clamped and cut. The infant was handed off to awaiting pediatricians. Cord blood was collected. The placenta was removed manually. The uterus was cleared of all clots and debris. The uterine incision was repaired with 0 Vicryl in a running, locked fashion. The second layer of the same suture was used to imbricate the first to obtain excellent hemostasis. Re-inspection of the uterine incision proved excellent hemostasis. The abdomen and pelvis were irrigated with copious amounts of warm normal saline. Re-inspection of the uterine incision proved hemostasis. All instruments were removed from the patient. The peritoneal layer was closed with a running stitch of 2-0 chromic. The rectus muscles were reapproximated in the midline with a running stitch of 2-0 chromic. The fascial layer was closed with a running stitch of 0 Vicryl. The subcutaneous tissue was closed with a running stitch of 3-0 plain. The skin was closed with luis f. The patient tolerated the procedure well. All sponge, lap and needle counts were correct x2. There were no complications. The patient was given 2 g of Ancef just prior to beginning of the procedure. The patient was taken to the recovery room in awake and stable condition. Stephan Viera MD
[2018-04-24] MEDS ORDERED: Simethicone 80 mg Chewtab PO PRN (08:48)
[2018-04-24] MEDS: Lactated Ringer's 1,000 ML IV SCH (11:00)
--- NOTE | 2018-04-24 12:01 | OBPPN ---
Datetime: 04/24/2018 11:54 PP Pain Prov: Within normal limits PP Nausea Prov: Denies PP Flatus Prov: Yes PP Breasts Prov: Normal PP Heart Prov: Normal PP Lungs Prov: Normal PP Abdomen/Uterus Prov: Normal PP Lochia Prov: Normal PP Vulva/Perineum Prov: Normal PP CVA Tenderness Prov: Normal PP Extremities Prov: Normal PP Comments Phys Exam Prov: Fundus firm under umbilicus Incision clean/dry/intact PP Impression Prov: Normal progression PP Plan Prov: Continue present management PP Progress Note Prov: patient denies CP, no SOB, no N/V, tolerating po diet, ambulating well mild l ochia, abdominal pain tolerable withi meds, no flatu A/P POD #1 1. continue routine postop orders 2. Reg diet 3. Encourage ambulation and breast feeding IP PP Procedures: None Vital Signs Provider PP: Reviewed; Within Normal Limits
[2018-04-24] MEDS: Simethicone 80 mg Chewtab PO PRN (22:28)
--- NOTE | 2018-04-25 11:56 | OBPPN ---
Datetime: 04/25/2018 11:53 PP Pain Prov: Within normal limits PP Nausea Prov: Denies PP Flatus Prov: Yes PP BM Prov: No PP Breasts Prov: Normal PP Heart Prov: Normal PP Lungs Prov: Normal PP Abdomen/Uterus Prov: Normal PP Lochia Prov: Normal PP Vulva/Perineum Prov: Normal PP CVA Tenderness Prov: Normal PP Extremities Prov: Normal PP C/S Incision Prov: Normal PP Progress Prov: Normal PP Impression Prov: Normal progression PP Plan Prov: Continue present management PP Progress Note Prov: She feels fine. No problems. H/H Rubella Non Immune A: S/P C/S day 2 PLAN: cont post op care. Vital Signs Provider PP: Reviewed; Within Normal Limits
[2018-04-25] MEDS: Simethicone 80 mg Chewtab PO PRN (21:05)
[2018-04-26] MEDS ORDERED: Measles, Mumps, and Rubella 0.5 ML VIAL SC ONE (08:35)
--- NOTE | 2018-04-26 10:10 | OBPPN ---
Datetime: 04/26/2018 10:07 PP Pain Prov: Within normal limits PP Nausea Prov: Denies PP Flatus Prov: Yes PP Breasts Prov: Not Done PP Heart Prov: Not Done PP Lungs Prov: Not Done PP Abdomen/Uterus Prov: Normal PP Lochia Prov: Not Done PP Vulva/Perineum Prov: Not Done PP CVA Tenderness Prov: Normal PP Extremities Prov: Normal PP C/S Incision Prov: Normal PP Impression Prov: Normal progression PP Plan Prov: Discharge PP Progress Note Prov: Patient doing well ambulating tolerating diet pain well-controlled Patient cleared for discharge Patient to follow with Dr. Uribe Vital Signs Provider PP: Reviewed
[2018-04-26 18:42] VITALS: BP 123/86; PULSE 92; RESP 20; TEMP 98.3; O2SAT 99
== END 2018-04-26 12:52 | disposition home or self-care (01) | DRG 371 ==
LOC: H.EROB2 23:20 → H.L&D 04-23 01:59 → H.OB/GYN 04-23 07:30
PROVIDERS: ADMIT Obstetrics & Gynecology; ATTEND Obstetrics & Gynecology
PROC: 10D00Z1 Extraction of Products of Conception, Low, Open Approach (ICD-10-PCS; principal; 2018-04-23)
PROC: 4A1HXCZ Monitoring of Products of Conception, Cardiac Rate, External Approach (ICD-10-PCS; 2018-04-23)
DX: O34.211 Maternal care for low transverse scar from previous cesarean delivery (principal); O77.0 Labor and delivery complicated by meconium in amniotic fluid; O99.89 Other specified diseases and conditions complicating pregnancy, childbirth and the puerperium; N73.6 Female pelvic peritoneal adhesions (postinfective); Z3A.38 38 weeks gestation of pregnancy; Z37.0 Single live birth